=== PATIENT | male | born 1995 | race African-American/Black ===

== ENCOUNTER 2020-09-27 21:27 | Emergency (ER) | payer SELFPAY ==
[2020-09-27 21:58] VITALS: BP 135/80; PULSE 100; RESP 18; TEMP 36.4; O2SAT 99
--- NOTE | 2020-09-27 22:59 | PC.NURSE ---
PT PRESENTS TO ED WITH COMPLAINTS OF LEFT ARM PAIN THAT ONSET THIS MORNING WHILE AT WORK. 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 PT DENIES INJURY, TRAUMA AND HEAVY LIFTING. NO OBVIOUS SWELLING OR DEFORMITIES NOTED. PT NOTED TO BE ALERT AND ORIENTED X4 AND IN NO OBVIOUS DISTRESS. VITALS PAMELA TABLE. cALL BUTTON AND PERSONAL ITEMS WITHIN REACH. pT ADVISED TO PRESS CALL BUTTON FOR ASSISTANCE.
[2020-09-27 23:01] VITALS: BP 143/85; PULSE 106; RESP 23; TEMP 36.8; O2SAT 99
--- NOTE | 2020-09-28 00:28 | PC.NURSE ---
Pt in room resting on cart and remains alert and oriented x4. Pt in no obvious distress and vitals remain stable. Pt advised to press call button for assistance.
[2020-09-28 00:32] VITALS: BP 132/81; PULSE 90; RESP 21; O2SAT 99
--- NOTE | 2020-09-28 00:54 | ED.GENADULT ---
[facility] - General Adult General Chief complaint: Extremity Problem,Nontraumatic Stated complaint: intermittent left arm pain Time Seen by Provider: 09/28/20 00:17 Source: patient History of Present Illness HPI narrative: Patient is a 25 y/o male complaining of intermittent left distal forearm pain starting today. He describes his pain as sharp and rates it as 3/10 when it occurs. There is no known alleviating or exacerbating factor. He does not recall any injury. He has no chest pain, SOB or neck pain. Related Data Allergies Allergy/AdvReac Type Severity Reaction Status Date / Time No Known Drug Allergies Allergy Mild Other Verified 09/27/20 22:01 Review of Systems Review of Systems: All systems reviewed & are unremarkable except as noted in HPI and below Constitutional: Constitutional: Denies chills, Denies fever(s), Denies headache(s) and Denies weakness Eyes: Eyes: Denies blurry vision ENT: Denies headache(s) and Denies neck pain Cardiovascular: Cardiovascular: Denies chest pain and Denies dyspnea Respiratory: Respiratory: Denies cough and Denies dyspnea Gastrointestinal: Gastrointestinal: Denies abdominal pain, Denies diarrhea, Denies nausea and Denies vomiting Genitourinary: Genitourinary: Denies hematuria and Denies dysuria Musculoskeletal: Musculoskeletal: Denies back pain, Denies neck pain and Reports other (left arm pain) Neurologic: Denies headache(s) and Denies weakness Exam Const: General: no acute distress and well developed Orientation/consciousness: oriented to person, oriented to place, oriented to time and patient oriented x3 HENMT: Head: normocephalic Ears: external ears normal General nose exam: Normal external nose present Eyes: General: appearance normal, both eyes and all related structures Conjunctivae: conjunctivae normal Neck: Neck: normal visual inspection and full ROM Chest: Chest palpation & inspection: normal inspection of the chest and no tenderness Resp: Effort & Inspection: normal respiratory effort Auscultation: clear to auscultation bilaterally Cardio: Rate: regular rate Rhythm: regular rhythm GI: GI Palp: No abdominal tenderness and Yes Soft to palpation Skin: General skin exam: normal color and turgor normal Neuro: General: oriented to person, oriented to place, oriented to time and patient oriented x3 Cognition (Neuro): normal cognition Extrem: General: normal to inspection, full ROM and no pedal edema Left upper extremity: elbow/forearm normal to inspection and other (no sign of injury or bruise); no tenderness Psych: Appearance: grossly normal Mental Status: mental status grossly normal Affect: normal affect Course Vital Signs Vital signs: Vital Signs Temperature 36.4 C L 09/27/20 21:58 Pulse Rate 100 09/27/20 21:58 Respiratory Rate 18 09/27/20 21:58 Blood Pressure 135/80 09/27/20 21:58 Pulse Oximetry 99 09/27/20 21:58 Temperature 36.8 C 09/27/20 23:01 Pulse Rate 90 09/28/20 00:32 Respiratory Rate 21 H 09/28/20 00:32 Blood Pressure 132/81 09/28/20 00:32 Pulse Oximetry 99 09/28/20 00:32 Medical Decision Making Vital Signs Vital Signs: Vital Signs Temperature 36.4 C L 09/27/20 21:58 Pulse Rate 100 09/27/20 21:58 Respiratory Rate 18 09/27/20 21:58 Blood Pressure 135/80 09/27/20 21:58 Pulse Oximetry 99 09/27/20 21:58 Temperature 36.8 C 09/27/20 23:01 Pulse Rate 90 09/28/20 00:32 Respiratory Rate 21 H 09/28/20 00:32 Blood Pressure 132/81 09/28/20 00:32 Pulse Oximetry 99 09/28/20 00:32 Discharge Plan Discharge Clinical Impression: Arm pain, left Patient Disposition: Home, Self-Care Condition: Stable Instructions: Arm Pain (ED) Follow-up/Referrals: PHYSICIAN,EQUIPMENT VALIDATION ENGINEER [Primary Care Provider] -
--- NOTE | 2020-09-28 01:18 | PC.NURSE ---
Pt eloped from ed.
== END 2020-09-28 01:21 | disposition home or self-care (01) ==
PROVIDERS: Emergency Provider Emergency Medicine
DX: M79.632 Pain in left forearm (principal)
CPT/HCPCS: 99282

== ENCOUNTER 2021-10-10 12:05 | Emergency (ER) | payer SELFPAY ==
[2021-10-10 12:11] VITALS: BP 159/92; PULSE 86; RESP 14; TEMP 36.5; O2SAT 98
--- NOTE | 2021-10-10 12:15 | ECG_ITS ---
Measurements Intervals [place] Rate: 80 P: 38 W[place]: 138 QRS: 57 QRSD: 89 T: 42 QT: 344 QTc: 398 Interpretive Statements SINUS RHYTHM ST ELEVATION IN ANTEROLAT/INF LEADS, PROBABLY EARLY REPOLARIZATION BASELINE WANDER- I, II, III, AVR, AVL, AVF BORDERLINE ECG Electronically Signed On 10-10-2021 12:48:31 CDT by Dilan Hopson D.O.
--- NOTE | 2021-10-10 13:45 | ED.ARRPALP ---
HPI - Arrhythmia/Palpitations General Chief Complaint: Arrhythmia/Palpitations Stated Complaint: LUMP ON NECK, FAST HEART RATE Time Seen by Provider: 10/10/21 12:57 History of Present Illness HPI narrative: 26-year-old male presents emergency room secondary palpitations. He states that several times had these occasions where he felt like his heart races with him. It lasted for a minute or less. He has no concurrent symptoms associated with this such as chest pain, shortness of breath, lightheadedness, or syncope. He does drink a lot of caffeine as he works as a facility security officer states he drinks caffeine pretty frequently lives working. He got no cardiac history. He is non-smoker does not drink alcohol. He denies any illicit drug use. No family history of any cardiac abnormalities. Related Data Allergies Allergy/AdvReac Type Severity Reaction Status Date / Time No Known Drug Allergies Allergy Mild Other Verified 09/27/20 22:01 Review of Systems Review of Systems: CONSTITUTIONAL: Denies fever, chills, or sweats. EYES: Denies visual changes, redness, or discharge. ENT: Denies rhinorrhea, congestion, sore throat, or otalgia. CARDIOVASCULAR: Denies chest pain. Palpitations RESPIRATORY: Denies cough or dyspnea. GASTROINTESTINAL: Denies abdominal pain, nausea, vomiting, or diarrhea. GENITOURINARY: Denies dysuria or hematuria. SKIN: Denies rash or itching. MUSCULOSKELETAL: Denies back pain, joint pain, or myalgia. NEUROLOGIC: Denies headache, numbness, or weakness. PSYCHIATRIC: Denies anxiety or depression. [facility] Past Medical History Medical History (Updated 10/10/21 @ 14:17 by Amish Easton DO) No active medical problems Surgical History Surgical History (Updated 10/10/21 @ 13:51 by Amish Easton DO) No history of previous surgery Social History Social History (Updated 10/10/21 @ 13:52 by Amish Easton DO) Smoking status: Never smoker Alcohol intake: never Occupation/Education: occupation Additional occupation/education comments: audit officer Exam Narrative: APPEARANCE: Well appearing, no pain or distress, well-nourished. Head normocephalic and atraumatic. EYES: PERRLA/EOMI, conjunctivae very clear. NOSE: Normal with no drainage EARS:TMS clear Renita Aiken, with good light reflex. THROAT: Pharynx clear, no exudate. NECK: Supple. No adenopathy, no masses. RESPIRATORY: Airway patent, respirations nonlabored. Clear to auscultation bilaterally, no rales, rhonchi, wheezing. CARDIOVASCULAR: Regular rate and rhythm without murmurs, rubs, or gallops. ABDOMINAL: Soft, nontender, nondistended, no hepatosplenomegaly Musculoskeletal: Moves all extremities. Strength/ROM intact, No edema, No calf tenderness. NEURO: Alert. Cranial nerves II through XII intact. Normal gait. Good coordination. Nonfocal examination. SKIN:: Warm, dry. Normal Color PSYCHIATRIC: Normal affect/mood, normal interaction Course Vital Signs Vital signs: Vital Signs Temperature 97.7 F 10/10/21 12:11 Pulse Rate 86 10/10/21 12:11 Respiratory Rate 14 10/10/21 12:11 Blood Pressure 159/92 H 10/10/21 12:11 Pulse Oximetry 98 10/10/21 12:11 Oxygen Delivery Room Air 10/10/21 12:11 Temperature 97.7 F 10/10/21 12:11 Pulse Rate 86 10/10/21 12:11 Respiratory Rate 14 10/10/21 12:11 Blood Pressure 159/92 H 10/10/21 12:11 Pulse Oximetry 98 10/10/21 12:11 Oxygen Delivery Room Air 10/10/21 12:11 MDM - Arrhythmia/Palpitations MDM Narrative Medical decision making narrative: Work-up evaluation including CBC and a comprehensive metabolic panel all noted to be normal. Discussed all these with the patient. Advised the patient that he needs to dramatically decrease his caffeine intake. Told him that he needs to follow-up with a doctor because if he continues to have these episodes they need to put him on a cardiac cath lab radiology technologist called a Holter monitor to try to capture the events to find out exactly what is
[2021-10-10 13:58] LABS: Basophils Percent Auto 0.5 % (0.2-1.2); Eosinophils Absolute Auto 0.2 K/mm3 (0-0.3); Hematocrit 49.4 % (42.0-52.0); Hemoglobin 15.6 g/dL (14.0-18.0); Immature Granulocyte Absolute 0.02 K/mm3 (0.00-0.031); Immature Granulocyte Percent A 0.3 % (0-0.5); Lymphocytes Absolute Auto 2.23 K/mm3 (0.9-3.2); Lymphocytes Percent Auto 30.4 % (18.3-44.2); Mean Corpuscular HGB Conc 31.6 g/dl (32-36); Mean Corpuscular Hemoglobin 27.7 pg (26-34); Mean Corpuscular Volume 87.7 fl (80-100); Mean Platelet Volume 10.4 fl (7.4-10.4); Monocytes Absolute Auto 0.5 K/mm3 (0.1-0.6); Monocytes Percent Auto 6.8 % (2.6-8.5); Neutrophils Absolute Auto 4.4 K/mm3 (1.3-6.7); Platelet Count Result 292 k/mm3 (150-375); Red Blood Count 5.63 M/mm3 (4.6-6.20); Red Cell Distribution Width 13.3 % (11.5-14.5); White Blood Count 7.3 K/mm3 (4.5-10.0)
[2021-10-10 14:10] LABS: Alanine Aminotransferase 23 U/L (6-50); Albumin Level 5.1 g/dL (3.5-5.1); Alkaline Phosphatase 124 U/L (38-126); Anion Gap 8 mmol/L (8-16); Aspartate Amino Transferase 31 U/L (17-59); Bilirubin,Total 0.8 mg/dL (0.2-1.3); Blood Urea Nitrogen 17 mg/dL (9-20); Calcium 9.5 mg/dL (8.4-10.2); Carbon Dioxide 27 mmol/L (22-30); Chloride 106 mmol/L (98-107); Estimated CRCL calculation 127 ml/min; Estimated Glomerular Filt Rate > 60; Glucose 90 mg/dL (65-110); Potassium 3.9 mmol/L (3.4-5.0); Sodium 141 mmol/L (137-145)
[2021-10-10 14:27] VITALS: PULSE 87
== END 2021-10-10 14:30 | disposition home or self-care (01) ==
PROVIDERS: Emergency Provider Emergency Medicine; PCP Emergency Medicine
DX: R00.2 Palpitations (principal); R94.31 Abnormal electrocardiogram [ECG] [EKG]
CPT/HCPCS: 36415; 80053; 85025; 93005; 99283